=== PATIENT | male | born 1975 | race Caucasian/White ===

== ENCOUNTER 2016-12-29 12:04 | Emergency (ER) | payer MEDICAID ==
[~2016-12-29] VITALS: Ht 193 cm; Wt 90.9 kg
[2016-12-29] MEDS ORDERED: SERT50TA12 PO (12:20)
[2016-12-29] MEDS ORDERED: DIVA125T PO (12:20)
[2016-12-29] MEDS ORDERED: LORazepam 1 MG TABLET PO ONE (14:00)
[2016-12-29 14:12] LABS: BASOPHILS % (AUTO) 0.2 % (0.0-2.0); EOSINOPHILS % (AUTO) 0.3 % (1.0-6.0); HEMATOCRIT 45.5 % (41-53); HEMOGLOBIN 15.8 g/dL (13.5-17.5); LYMPHOCYTES # (AUTO) 1.2 K/uL (1.0-4.8); LYMPHOCYTES % (AUTO) 17.9 % (22.0-44.0); MEAN CORPUSCULAR HEMOGLOBIN 32.4 pg (26.0-34.0); MEAN CORPUSCULAR HGB CONC 34.8 G/dL (31.0-37.0); MEAN CORPUSCULAR VOLUME 93 fL (80-100); MONOCYTES # (AUTO) 0.3 K/uL (0.1-1.0); NEUTROPHILS # (AUTO) 5.2 K/uL (1.8-7.7); NEUTROPHILS % (AUTO) 77.6 % (40.0-70.0); PLATELET COUNT (AUTO) 308 K/uL (150-450); RED BLOOD CELL COUNT(AUTO) 4.88 MIL/uL (4.50-5.90); RED CELL DISTRIBUTION WIDTH 13.4 % (11.5-14.5); WHITE BLOOD COUNT (AUTO) 6.8 K/uL (4.5-11.0)
[2016-12-29 14:19] LABS: ANION GAP 10 mmol/L (8-16); CALCIUM, TOTAL 9.7 mg/dL (8.8-10.5); CARBON DIOXIDE 28 mmol/L (22-29); CHLORIDE 101 mmol/L (98-107); CREATININE 1.29 mg/dL (0.60-1.30); GLOMERULAR FILTR. RATE CALC > 60 mL/min (>60); POTASSIUM 3.8 mmol/L (3.5-5.1); SODIUM SERUM 139 mmol/L (136-145); UREA NITROGEN, BLOOD 17 mg/dL (7-18)
[2016-12-29 14:25] LABS: ALANINE AMINOTRANSFERASE 53 U/L (12-78); ALBUMIN 4.4 g/dL (3.4-5.0); ASPARTATE AMINOTRANSFERASE 38 U/L (15-37); BILIRUBIN,TOTAL 1.6 mg/dL (0.1-1.0); TOTAL PROTEIN, SERUM 7.7 g/dL (6.4-8.2)
[2016-12-29 15:02] VITALS: BP 128/82
== END 2016-12-29 15:03 | disposition home or self-care (01) ==
LOC: EMS 12:07
DX: F10.10 Alcohol abuse, uncomplicated (principal)
CPT/HCPCS: 36415; 80053; 85025; 99284; G0480

== ENCOUNTER 2017-01-16 11:46 | Emergency (ER) | payer MEDICAID ==
[~2017-01-16] VITALS: Ht 182.9 cm; Wt 90.9 kg
[~2017-01-16 11:46] MED LIST: DIVA125T PO; SERT50TA12 PO
[2017-01-16] MEDS ORDERED: ANTIBIOTIC PO (12:07)
[2017-01-16] MEDS ORDERED: LORazepam 2 MG TABLET PO ONE (13:00)
[2017-01-16 13:42] VITALS: BP 103/82
== END 2017-01-16 13:50 | disposition home or self-care (01) ==
LOC: EMS 11:48
DX: F41.9 Anxiety disorder, unspecified (principal); F15.10 Other stimulant abuse, uncomplicated
CPT/HCPCS: 99285